=== PATIENT | male | born 1960 | race Caucasian/White ===

== ENCOUNTER 2017-05-18 12:19 | Emergency (ER) | payer OTHER ==
[~2017-05-18] VITALS: Ht 172.7 cm; Wt 140.6 kg
[~2017-05-18 12:19] MED LIST: ALBU90OI INH; AMLO10 PO; ASPI325 PO; ATEN50 PO; CEPH500 PO; CHLO25 PO; CLON.1 PO; DIPH50 PO; DOXY100 PO; FURO40 PO; HYDACE5 PO; HYDCHL25 PO; HYDRA25 PO; INCARCERATION; LISI10 PO; LISI20 PO; METF500 PO; METO25ER PO; Motion Sickness25 M1 PO; OXYC5 PO; RANI150 PO; TRAM50 PO; VALS80 PO; Zofran Odt8 MG SL
[2017-10-06] MEDS ORDERED: CARV3.125 (16:26)
[2017-10-06] MEDS ORDERED: FURO20 (16:26)
[2017-10-06] MEDS ORDERED: GLIP5 (16:27)
[2017-10-06] MEDS ORDERED: ATOR20 (16:27)
[2017-10-06] MEDS ORDERED: GABA300 PO (16:27)
[2017-10-06] MEDS ORDERED: LOSA25 (16:28)
[2017-10-06] MEDS ORDERED: POTCHL10ER (16:28)
[2017-10-06] MEDS ORDERED: Robaxin-750750 MG PO (17:41)
[2017-10-06] MEDS ORDERED: Percocet 10-321 EACH PO (17:41)
[2018-02-10] MEDS ORDERED: CARV25 PO (03:51)
[2018-02-10] MEDS ORDERED: LOSA50 PO (03:52)
[2018-02-10] MEDS ORDERED: GABA300 PO ×2 (03:53→03:54)
[2018-02-10] MEDS ORDERED: Travatan Z5 ML BOTHEYES (03:55)
[2018-02-10] MEDS ORDERED: HYDHCL25 PO (03:57)
[2018-02-10] MEDS ORDERED: IBUP800 PO (03:58)
[2018-02-10] MEDS ORDERED: TRAZ50 PO (04:02)
[2018-02-10] MEDS ORDERED: BUPR150ER PO (04:03)
[2018-02-10] MEDS ORDERED: Naltrexone HCl50 MG PO (04:04)
[2018-02-10] MEDS ORDERED: Xalatan2.5 ML BOTHEYES (04:06)
== END 2017-05-18 14:06 | disposition home or self-care (01) ==
LOC: ER 12:19
DX: S91.201A Unspecified open wound of right great toe with damage to nail, initial encounter (principal); E11.9 Type 2 diabetes mellitus without complications; I10 Essential (primary) hypertension; W54.1XXA Struck by dog, initial encounter; Z88.8 Allergy status to other drugs, medicaments and biological substances
CPT/HCPCS: 11730; 99283

== ENCOUNTER 2017-10-29 18:06 | Emergency (ER) | payer OTHER ==
[~2017-10-29] VITALS: Ht 172.7 cm; Wt 135.2 kg
[~2017-10-29 18:06] MED LIST changes: +ATOR20; +CARV3.125; +FURO20; +GABA300 PO; +GLIP5; +LOSA25; +POTCHL10ER; +Percocet 10-321 EACH PO; +Robaxin-750750 MG PO
[2017-10-29 18:23] LABS: BASOPHILS ABSOLUTE AUTO 0.03 K/mm3 (0.00-0.23); BASOPHILS PERCENT AUTO 1 % (0-2); EOSINOPHILS ABSOLUTE AUTO 0.06 K/mm3 (0.00-0.68); EOSINOPHILS PERCENT AUTO 1 % (0-6); Hematocrit 41.4 % (37.0-53.0); Hemoglobin 14.4 g/dL (13.5-17.5); IMMATURE GRAN ABSOLUTE AUTO 0.02 K/mm3 (0.00-0.10); IMMATURE GRAN PERCENT AUTO 0 % (0-1); LYMPHOCYTES ABSOLUTE AUTO 1.74 K/mm3 (0.84-5.20); LYMPHOCYTES PERCENT AUTO 28 % (21-46); MONOCYTES ABSOLUTE AUTO 0.56 K/mm3 (0.16-1.47); MONOCYTES PERCENT AUTO 9 % (4-13); Mean Corpuscular HGB 29.5 pg (26.0-34.0); Mean Corpuscular HGB Conc 34.8 g/dL (31.5-36.5); Mean Corpuscular Volume 85 fL (80-100); Mean Platelet Volume 8.6 fL (9.1-12.4); NEUTROPHILS ABSOLUTE AUTO 3.81 K/mm3 (1.96-9.15); NEUTROPHILS PERCENT AUTO 61 % (41-73); Platelet Count 171 K/mm3 (150-400); RDW Coefficient Variation 12.8 % (11.7-14.2); RDW Standard Deviation 39.4 fL (35.1-46.3); Red Blood Cell Count 4.88 M/mm3 (4.30-5.90); White Blood Cell Count 6.22 K/mm3 (4.00-11.30)
[2017-10-29 18:42] LABS: Alanine Aminotransfer (ALT/SGP 18 U/L (12-78); Albumin, Blood 3.6 g/dL (3.4-5.0); Albumin/Globulin Ratio 0.8 (0.8-1.8); Alk Phos 116 U/L (50-136); Anion Gap 10 mmol/L (6-16); Aspartate Aminotrans (AST/SGOT 22 U/L (12-37); Bilirubin, Total 0.6 mg/dL (0.1-1.0); Blood Urea Nitrogen 11 mg/dL (8-24); Bun/Creatinine Ratio 14.6 (12.0-20.0); CO2, Blood 27 mmol/L (21-32); Calcium, Blood 9.4 mg/dL (8.5-10.1); Chloride, Blood 101 mmol/L (98-108); Creatinine, Blood 0.75 mg/dL (0.60-1.20); Globulin, Blood 4.4 g/dL (2.2-4.0); Glomerular Filtration Rate >60 (60-); Glucose, Blood 198 mg/dL (70-99); Potassium, Blood 3.9 mmol/L (3.5-5.5); Sodium, Blood 138 mmol/L (136-145); Troponin I <0.015 ng/mL (0.000-0.040)
[2017-10-29] MEDS ORDERED: POTA8 PO (18:42)
[2017-10-29] MEDS ORDERED: Omeprazole20 M1 PO (18:43)
[2017-10-29] MEDS ORDERED: Carvedilol12.5 MG PO (18:43)
[2017-10-29] MEDS ORDERED: LOSA50 PO (18:44)
[2017-10-29] MEDS ORDERED: ASPI81CH PO (18:44)
[2017-10-29] MEDS ORDERED: BUME2 PO (18:44)
[2017-10-29] MEDS ORDERED: Acetaminophen325 M1 PO (18:45)
[2017-10-30] MEDS ORDERED: ATOR40TA PO (14:51)
[2017-10-30] MEDS ORDERED: BACL10 PO (14:51)
[2017-10-30] MEDS ORDERED: FLUTICASONE P15.8 ML (14:53)
[2017-10-30] MEDS ORDERED: FOLI1 PO (14:54)
[2017-10-30] MEDS ORDERED: GABA300 PO (14:54)
[2017-10-30] MEDS ORDERED: Hair, Skin & N1 EACH PO (14:55)
[2017-10-30] MEDS ORDERED: MAGOXI400 PO (14:55)
[2017-10-30] MEDS ORDERED: GLIP10 PO (14:55)
[2017-10-30] MEDS ORDERED: THIA100 PO (14:56)
== END 2017-10-29 22:04 | disposition home or self-care (01) ==
LOC: ER 18:06
PROVIDERS: Emergency Medicine
DX: R07.9 Chest pain, unspecified (principal); I10 Essential (primary) hypertension; E11.9 Type 2 diabetes mellitus without complications; K21.9 Gastro-esophageal reflux disease without esophagitis; Z88.8 Allergy status to other drugs, medicaments and biological substances; Z79.899 Other long term (current) drug therapy; Z79.82 Long term (current) use of aspirin
CPT/HCPCS: 71046; 80053; 83880; 84484; 85025; 93005; 93010; 96374; 96375; 99284; J1885; J2405; J3010

== ENCOUNTER 2017-10-30 14:24 | Emergency (ER) | payer OTHER ==
[~2017-10-30] VITALS: Ht 172.7 cm; Wt 135.2 kg
[~2017-10-30 14:24] MED LIST changes: +ASPI81CH PO; +Acetaminophen325 M1 PO; +BUME2 PO; +Carvedilol12.5 MG PO; +LOSA50 PO; +Omeprazole20 M1 PO; +POTA8 PO
[2017-10-30] MEDS ORDERED: BACL10 PO (14:51)
[2017-10-30] MEDS ORDERED: ATOR40TA PO (14:51)
[2017-10-30 14:53] LABS: BASOPHILS ABSOLUTE AUTO 0.02 K/mm3 (0.00-0.23); BASOPHILS PERCENT AUTO 0 % (0-2); EOSINOPHILS ABSOLUTE AUTO 0.06 K/mm3 (0.00-0.68); EOSINOPHILS PERCENT AUTO 1 % (0-6); Hemoglobin 14.5 g/dL (13.5-17.5); IMMATURE GRAN ABSOLUTE AUTO 0.01 K/mm3 (0.00-0.10); IMMATURE GRAN PERCENT AUTO 0 % (0-1); LYMPHOCYTES ABSOLUTE AUTO 1.44 K/mm3 (0.84-5.20); LYMPHOCYTES PERCENT AUTO 30 % (21-46); MONOCYTES ABSOLUTE AUTO 0.51 K/mm3 (0.16-1.47); MONOCYTES PERCENT AUTO 11 % (4-13); Mean Corpuscular HGB 29.4 pg (26.0-34.0); Mean Corpuscular HGB Conc 34.5 g/dL (31.5-36.5); Mean Corpuscular Volume 85 fL (80-100); Mean Platelet Volume 8.4 fL (9.1-12.4); NEUTROPHILS PERCENT AUTO 58 % (41-73); Platelet Count 159 K/mm3 (150-400); RDW Coefficient Variation 12.8 % (11.7-14.2); RDW Standard Deviation 39.4 fL (35.1-46.3); Red Blood Cell Count 4.93 M/mm3 (4.30-5.90); White Blood Cell Count 4.84 K/mm3 (4.00-11.30)
[2017-10-30] MEDS ORDERED: FLUTICASONE P15.8 ML (14:53)
[2017-10-30] MEDS ORDERED: FOLI1 PO (14:54)
[2017-10-30] MEDS ORDERED: GABA300 PO (14:54)
[2017-10-30] MEDS ORDERED: Hair, Skin & N1 EACH PO (14:55)
[2017-10-30] MEDS ORDERED: MAGOXI400 PO (14:55)
[2017-10-30] MEDS ORDERED: GLIP10 PO (14:55)
[2017-10-30] MEDS ORDERED: THIA100 PO (14:56)
[2017-10-30 15:10] LABS: Alanine Aminotransfer (ALT/SGP 19 U/L (12-78); Albumin, Blood 3.5 g/dL (3.4-5.0); Albumin/Globulin Ratio 0.8 (0.8-1.8); Alk Phos 112 U/L (50-136); Anion Gap 10 mmol/L (6-16); Aspartate Aminotrans (AST/SGOT 24 U/L (12-37); Bilirubin, Total 0.9 mg/dL (0.1-1.0); Blood Urea Nitrogen 15 mg/dL (8-24); Bun/Creatinine Ratio 17.6 (12.0-20.0); CO2, Blood 27 mmol/L (21-32); Calcium, Blood 9.3 mg/dL (8.5-10.1); Chloride, Blood 100 mmol/L (98-108); Creatinine, Blood 0.85 mg/dL (0.60-1.20); Globulin, Blood 4.4 g/dL (2.2-4.0); Glomerular Filtration Rate >60 (60-); Glucose, Blood 179 mg/dL (70-99); Potassium, Blood 3.8 mmol/L (3.5-5.5); Sodium, Blood 137 mmol/L (136-145); Total Protein, Blood 7.9 g/dL (6.4-8.2); Troponin I <0.015 ng/mL (0.000-0.040)
== END 2017-10-30 17:23 | disposition home or self-care (01) ==
LOC: ER 14:24
PROVIDERS: Internal Medicine
DX: R07.89 Other chest pain (principal); I10 Essential (primary) hypertension; E11.9 Type 2 diabetes mellitus without complications; E78.5 Hyperlipidemia, unspecified; Z88.8 Allergy status to other drugs, medicaments and biological substances; Z79.899 Other long term (current) drug therapy; Z79.82 Long term (current) use of aspirin; Z79.84 Long term (current) use of oral hypoglycemic drugs
CPT/HCPCS: 80053; 84484; 85025; 93005; 93010; 96372; 99283; J1885

== ENCOUNTER 2018-01-09 11:36 | Emergency (ER) | payer OTHER ==
[~2018-01-09] VITALS: Ht 172.7 cm; Wt 132.0 kg
[~2018-01-09 11:36] MED LIST changes: +ATOR40TA PO; +BACL10 PO; +FLUTICASONE P15.8 ML; +FOLI1 PO; +GLIP10 PO; +Hair, Skin & N1 EACH PO; +MAGOXI400 PO; +THIA100 PO
== END 2018-01-09 14:45 | disposition home or self-care (01) ==
LOC: ER 11:36
DX: F07.81 Postconcussional syndrome (principal); I10 Essential (primary) hypertension; E11.9 Type 2 diabetes mellitus without complications; Z88.8 Allergy status to other drugs, medicaments and biological substances; Z79.84 Long term (current) use of oral hypoglycemic drugs; Z79.899 Other long term (current) drug therapy; Z79.82 Long term (current) use of aspirin
CPT/HCPCS: 70450; 99284-25